=== PATIENT | male | born 1965 | race Caucasian/White ===

== ENCOUNTER 2024-03-23 09:36 | Observation (INO) ==
--- NOTE | 2024-03-23 09:48 | Emergency Department Note ---
History of Present Illness General Chief complaint: Seizure Stated complaint: SEIZURE Time Seen by Provider: 03/23/24 09:41 Source: patient, family (Friend who came in-Jonathan who witnessed this), EMS (I did talk to the special population paraprofessional prior to arrival on the medical command phone), RN notes reviewed and old records reviewed (Attempted but there were no old records available in the EMR) Mode of arrival: EMS Limitations: no limitations History of Present Illness This patient is 58-year-old male who was brought in by EMS after having seizures. They apparently were called out because he was shaky and then had a seizure he had a second seizure which lasted 10 minutes or so. He is postictal. He does have a history of having a stroke in the past and has baseline right- sided weakness. Upon arrival he seems diffusely shaky but is answering questions although seems slow and confused and postictal. No fall or trauma. They did check a blood sugar on route and it was in the 180s. He did have apparently 1 seizure in the past but is on no medications for seizures. I did talk to his friend Jonathan who witnesses he said they were eating breakfast before 9:00 and he said he was having a back spasm he lay down on the couch and his right leg started spasming they give him 2 extra strength Tylenol his right leg was shaky started looking to the side so he called 911. One-on-one and responded they did have a seizure and then he had 1 in the ambulance for about 10 minutes was given Ativan 2 mg IV. They did drink alcohol last night. No drug use no fall or trauma no illness recently he was fine this morning prior to this. His friend does not think he has a history of heavy alcohol use. Home Medications Medication Instructions Recorded Confirmed Type amlodipine 5 mg tablet 5 mg PO DAILY 03/23/24 03/23/24 History ezetimibe 10 mg tablet 10 mg PO HS 03/23/24 03/23/24 History levetiracetam 750 mg tablet 750 mg PO BID 03/23/24 03/23/24 History Allergies Allergy/AdvReac Type Severity Reaction Status Date / Time levofloxacin Allergy Unknown listed as Unverified 03/23/24 11:02 allergy on pharmacy record Past Med/Surg History Problem List (Updated 03/23/24 @ 12:12 by Arcadio Kennedy MD) Elevated lactic acid level (Acute) Altered level of consciousness (Acute) Seizure (Acute) Status epilepticus (Acute) History of seizures HLD (hyperlipidemia) HTN (hypertension) Right hemiplegia (Acute) History of stroke (Acute) Surgical History (Updated 03/23/24 @ 12:08 by Adri Rabago PA-C) Status post VNS (vagus nerve stimulator) placement Social History (Updated 03/23/24 @ 12:09 by Adri Rabago PA-C) Smoking Status: Never smoker Hx Alcohol Use: Yes Alcohol type: beer Alcohol Intake Frequency: 2-3 x/Week Feels Safe at Home: Yes Immunizations: Past medical history of stroke and seizure Social historyshe is in town from [place] no reported drug use or alcohol use Review of Systems A total of 10 systems reviewed and were otherwise negative Physical Exam Vital Signs Vital Signs - 24 hr 03/23/24 09:40 03/23/24 09:42 03/23/24 09:43 Temperature Temperature Source Pulse Rate 102 H 119 H Pulse Rate [Apical] Pulse Rate from SpO2 Sensor Pulse Rhythm Respiratory Rate 27 H 19 Respiratory Effort / Characteristics Respiratory Depth Respiratory Pattern Blood Pressure 163/114 H 163/114 H Blood Pressure [Left Arm] Blood Pressure Mean 148 130 Blood Pressure Mean [Left Arm] Pulse Oximetry 98 Oxygen Delivery Method Oxygen Flow Rate Sepsis Recent Fever Within 48 Hours No Sepsis New/Unexplained Change in Mental Status N/A Sepsis Action Taken by Nursing No Action Required 03/23/24 09:51 03/23/24 10:18 03/23/24 10:18 Temperature 36.8 C Temperature Source Axillary Pulse Rate 101 H 96 H Pulse Rate [Apical] 97 H Pulse Rate from SpO2 Sensor 149 H 96 H Pulse Rhythm Respiratory Rate 24 15 16 Respiratory Effort / Characteristics Non-Labored Respiratory Depth Normal Respiratory Pattern Regular Blood Pressure Blood Pressure [Left Arm] 134/80 Blood Pressure Mean Blood Pressure Mean [Left Arm] 98 Pulse Oximetry 94 94 92 Oxygen Delivery Method Room Air Oxygen Flow Rate Sepsis Recent Fever Within 48 Hours Sepsis New/Unexplained Change in Mental Status Sepsis Action Taken by Nursing 03/23/24 10:20 03/23/24 10:30 03/23/24 10:31 Temperature Temperature Source Pulse Rate 92 H Pulse Rate [Apical] Pulse Rate from SpO2 Sensor Pulse Rhythm Respiratory Rate Respiratory Effort / Characteristics Respiratory Depth Respiratory Pattern Blood Pressure 128/83 Blood Pressure [Left Arm] Blood Pressure Mean 96 Blood Pressure Mean [Left Arm] Pulse Oximetry 94 Oxygen Delivery Method Room Air Oxygen Flow Rate 0 Sepsis Recent Fever Within 48 Hours Sepsis New/Unexplained Change in Mental Status Sepsis Action Taken by Nursing 03/23/24 10:33 03/23/24 10:42 03/23/24 10:45 Temperature Temperature Source Pulse Rate 86 87 84 Pulse Rate [Apical] Pulse Rate from SpO2 Sensor 87 89 85 Pulse Rhythm Respiratory Rate 16 20 12 Respiratory Effort / Characteristics Respiratory Depth Respiratory Pattern Blood Pressure 154/100 H Blood Pressure [Left Arm] Blood Pressure Mean 118 Blood Pressure Mean [Left Arm] Pulse Oximetry 93 94 93 Oxygen Delivery Method Room Air Oxygen Flow Rate Sepsis Recent Fever Within 48 Hours Sepsis New/Unexplained Change in Mental Status Sepsis Action Taken by Nursing 03/23/24 10:54 03/23/24 10:55 03/23/24 10:55 Temperature Temperature Source Pulse Rate 73 77 Pulse Rate [Apical] Pulse Rate from SpO2 Sensor Pulse Rhythm Regular Respiratory Rate 18 18 Respiratory Effort / Characteristics Respiratory Depth Respiratory Pattern Blood Pressure Blood Pressure [Left Arm] 118/78 Blood Pressure Mean Blood Pressure Mean [Left Arm] 91 Pulse Oximetry 95 94 Oxygen Delivery Method Room Air Room Air Oxygen Flow Rate 0 Sepsis Recent Fever Within 48 Hours Sepsis New/Unexplained Change in Mental Status Sepsis Action Taken by Nursing 03/23/24 11:24 03/23/24 11:45 03/23/24 12:00 Temperature Temperature Source Pulse Rate 89 100 H Pulse Rate [Apical] Pulse Rate from SpO2 Sensor 101 H 100 H Pulse Rhythm Respiratory Rate 14 20 Respiratory Effort / Characteristics Respiratory Depth Respiratory Pattern Blood Pressure 150/99 H 150/99 H 136/89 Blood Pressure [Left Arm] Blood Pressure Mean 116 116 103 Blood Pressure Mean [Left Arm] Pulse Oximetry 98 97 Oxygen Delivery Method Room Air Room Air Oxygen Flow Rate Sepsis Recent Fever Within 48 Hours Sepsis New/Unexplained Change in Mental Status Sepsis Action Taken by Nursing General: Well developed well nourished older male who seems shaky but follows questions and answers some questions. He does have a baseline facial droop which is in no acute distress, breathing comfortably on room air. Normal speech HEENT: Normal cephalic atraumatic. Pupils are equal round and reactive to light. Extraocular movements are intact. Oropharynx is pink with moist mucous membranes. No swelling of the mouth lips or tongue. Baseline facial droop Neck: Supple with a midline trachea. No meningeal signs or stiffness, no JVD or bruits. No Stridor. Chest: Clear to auscultation bilaterally. No wheezes or rhonchi. No increased work of breathing. Heart: Regular rate and rhythm without murmurs or gallops. Abdomen: Soft nontender, nondistended without rebound guarding or rigidity. Extremities: No cyanosis clubbing or edema. No calf tenderness or assymetry Spine/Back. Non tender to palpation. No CVA tenderness Skin: Good turgor without rashes. Neurologic exam: Pupils are equal and reactive. He does seem diffusely shaky has baseline weakness of the right arm a facial droop. He is diffusely shaky at times but is also making purposeful movements and answering some questions. Course Administered Medications Discontinued Medications Sodium Chloride (Nss) 1,000 mls @ 999 mls/hr IV .Q1H1M ONE Stop: 03/23/24 11:16 Last Infusion: 03/23/24 11:12 Dose: Infused Documented By: Admin: 03/23/24 10:20 Dose: 999 mls/hr Documented By: LATONIA Ioversol (Optiray 320 150ml) 120 ml IV ONCE ONE Stop: 03/23/24 10:14 Last Admin: 03/23/24 10:13 Dose: 120 ml Documented By: FLORY Levetiracetam (Levetiracetam 500 Mg/5 Ml Vial) 3,340 mg IV NOW STA Stop: 03/23/24 09:44 Last Admin: 03/23/24 09:53 Dose: 3,340 mg Documented By: LATONIA Critical Care Time Critical Care Time: Yes Total Critical Care Time: 45 Due to the patient's altered mental status, seizure, need for IV medications, frequent neurologic evaluations and reassessment as well as discussion with paramedics, friend and consultants, I have personally spent greater than 30 minutes of critical care time in the direct management of this patient. This includes bedside care, interpretation of diagnostic studies, and testing, discussion with consultants, patient, and family members, and other required patient management activities. This 45 minutes is in excess of all separately billable procedures. Medical Decision Making Differential Diagnosis Seizure, sepsis, electrolyte or metabolic abnormality, toxicologic, metabolic, pseudoseizure alcohol use or withdrawal Medical Records Attestation: I reviewed the patient's medical records. Home Medications Current Medication List: was personally reviewed by nh Laboratory Data Attestation: I reviewed the patient's lab results. 03/23/24 09:51 03/23/24 09:51 Lab Results 03/23/24 03/23/24 03/23/24 Range/Units 09:51 09:52 10:26 WBC 6.32 (4.8-10.8) K/ul RBC 5.62 (4.70-6.10) M/uL Hgb 15.7 (14.0-18.0) g/dl POC Hgb 16.3 (14.0-18.0) g/dl Hct 48.1 (42.0-52.0) % POC Hct 48 (42-52) % MCV 85.6 (80.0-100.0) fL MCH 27.9 (25.0-34.0) pg MCHC 32.6 (32.0-36.0) g/dL RDW Std Deviation 40.1 (36.4-46.3) fL RDW Coeff of Ranjan 12.9 (11.5-14.5) % Plt Count 176 (130-400) K/uL MPV 12.0 (9.4-12.4) fL Immature Gran % (Auto) 0.2 % Neut % (Auto) 65.4 % Lymph % (Auto) 26.4 % Stanislaus % (Auto) 6.3 % Eos % (Auto) 0.9 % Baso % (Auto) 0.8 % Neut # (Auto) 4.13 (1.40-6.50) K/uL Lymph # (Auto) 1.67 (1.20-3.40) K/uL Stanislaus # (Auto) 0.40 (0.11-0.59) K/uL Eos # (Auto) 0.06 (0.00-0.50) K/uL Baso # (Auto) 0.05 (0.00-0.20) K/uL Immature Gran # (Auto) 0.01 (0.01-0.20) K/uL PT 10.7 (9.0-12.0) Seconds INR 1.0 (0.9-1.1) APTT 22 (21-31) Seconds PTT Ratio 0.8 POC Sodium 140 (135-144) mmol/L Sodium 139 (136-145) mmol/L POC Potassium 3.8 (3.3-5.0) mmol/L Potassium 3.8 (3.5-5.1) mmol/L POC Chloride 106 (101-112) mmol/L Chloride 106 (98-107) mmol/L Carbon Dioxide 19 L (21-32) mmol/L POC Total CO2 20 L (24-31) mmol/L Anion Gap 14 H (3-11) POC Anion Gap 19.0 (16-25) mmol/L POC BUN 16 (7-18) mg/dl BUN 18 (6-23) mg/dl Creatinine 1.17 (0.6-1.4) mg/dl POC Creatinine 1.2 (0.6-1.3) mg/dl Est Cr Clr Drug Dosing 73.7 ml/min Est GFR ( Amer) 78.1 ml/min Est GFR (Non-Af Amer) 67.4 ml/min BUN/Creatinine Ratio 15.4 (10-20) Glucose 158 H (70-99(Fasting)) mg/dl POC Glucose (other) 152 H (70-99) mg/dl Lactate 7.6 H* (0.4-2.0) mmol/L Calcium 9.7 (8.6-10.3) mg/dl POC Ioniz Calcium Esteban 1.17 (1.12-1.32) mmol/l Magnesium 1.9 (1.7-2.4) mg/dl Total Bilirubin 1.5 H (0.2-1.0) mg/dl Direct Bilirubin 0.2 (0-0.2) mg/dl AST 15 (13-39) U/L ALT 13 (7-52) U/L Alkaline Phosphatase 56 (34-104) U/L Troponin I High Sens 4.5 (0-20) pg/ml Total Protein 7.2 (6.0-8.3) gm/dl Albumin 4.2 (3.4-5.0) gm/dl Procalcitonin < 0.02 (0-0.5) ng/ml Urine Color Yellow Urine Appearance Clear (Clear) Urine pH 5.5 (4.5-7.5) Ur Specific Dorris 1.024 (1.000-1.030) Urine Protein 3+ H (Negative) Urine Glucose (UA) Negative (Negative) Urine Ketones Trace H (Negative) Urine Blood Negative (Negative) Urine Nitrite Negative (Negative) Urine Bilirubin Negative (Negative) Urine Urobilinogen Negative (Negative) Ur Leukocyte Esterase Negative (Negative) Urine WBC (Auto) 0-5 (0-5) /hpf Urine RBC (Auto) 0-2 (0-2) /hpf U Hyaline Cast (Auto) 6-10 H (0-2) /lpf U Epithel Cells (Auto) 0-2 (0-2) /hpf Urine Bacteria (Auto) None Seen (None Seen) Granular Casts Present A (None Prsent) /lpf Urine Mucus Present A (None Prsent) Urine Opiates Screen Neg (Neg) Ur Methadone, Qual Neg (Neg) Urine Fentanyl Screen Neg (Neg) Urine Barbiturates Neg (Neg) Ur Phencyclidine (PCP) Neg (Neg) U Amphetamin/Meth Scrn Neg (Neg) MDMA (Ecstasy) Screen Neg (Neg) U Benzodiazepines Scrn Neg (Neg) Ur Cocaine Metabolite Neg (Neg) U Marijuana (THC) Screen Neg (Neg) Ethyl Alcohol mg/dL (<10.0) mg/dl 03/23/24 03/23/24 Range/Units 11:10 11:23 WBC (4.8-10.8) K/ul RBC (4.70-6.10) M/uL Hgb (14.0-18.0) g/dl POC Hgb (14.0-18.0) g/dl Hct (42.0-52.0) % POC Hct (42-52) % MCV (80.0-100.0) fL MCH (25.0-34.0) pg MCHC (32.0-36.0) g/dL RDW Std Deviation (36.4-46.3) fL RDW Coeff of Ranjan (11.5-14.5) % Plt Count (130-400) K/uL MPV (9.4-12.4) fL Immature Gran % (Auto) % Neut % (Auto) % Lymph % (Auto) % Stanislaus % (Auto) % Eos % (Auto) % Baso % (Auto) % Neut # (Auto) (1.40-6.50) K/uL Lymph # (Auto) (1.20-3.40) K/uL Stan[place]aus # (Auto) (0.11-0.59) K/uL Eos # (Auto) (0.00-0.50) K/uL Baso # (Auto) (0.00-0.20) K/uL Immature Gran # (Auto) (0.01-0.20) K/uL PT (9.0-12.0) Seconds INR (0.9-1.1) APTT (21-31) Seconds PTT Ratio POC Sodium (135-144) mmol/L Sodium (136-145) mmol/L POC Potassium (3.3-5.0) mmol/L Potassium (3.5-5.1) mmol/L POC Chloride (101-112) mmol/L Chloride (98-107) mmol/L Carbon Dioxide (21-32) mmol/L POC Total CO2 (24-31) mmol/L Anion Gap (3-11) POC Anion Gap (16-25) mmol/L POC BUN (7-18) mg/dl BUN (6-23) mg/dl Creatinine (0.6-1.4) mg/dl POC Creatinine (0.6-1.3) mg/dl Est Cr Clr Drug Dosing ml/min Est GFR ( Amer) ml/min Est GFR (Non-Af Amer) ml/min BUN/Creatinine Ratio (10-20) Glucose (70-99(Fasting)) mg/dl POC Glucose (other) (70-99) mg/dl Lactate 2.1 H* (0.4-2.0) mmol/L Calcium (8.6-10.3) mg/dl POC Ioniz Calcium Esteban (1.12-1.32) mmol/l Magnesium (1.7-2.4) mg/dl Total Bilirubin (0.2-1.0) mg/dl Direct Bilirubin (0-0.2) mg/dl AST (13-39) U/L ALT (7-52) U/L Alkaline Phosphatase (34-104) U/L Troponin I High Sens (0-20) pg/ml Total Protein (6.0-8.3) gm/dl Albumin (3.4-5.0) gm/dl Procalcitonin (0-0.5) ng/ml Urine Color Urine Appearance (Clear) Urine pH (4.5-7.5) Ur Specific Dorris (1.000-1.030) Urine Protein (Negative) Urine Glucose (UA) (Negative) Urine Ketones (Negative) Urine Blood (Negative) Urine Nitrite (Negative) Urine Bilirubin (Negative) Urine Urobilinogen (Negative) Ur Leukocyte Esterase (Negative) Urine WBC (Auto) (0-5) /hpf Urine RBC (Auto) (0-2) /hpf U Hyaline Cast (Auto) (0-2) /lpf U Epithel Cells (Auto) (0-2) /hpf Urine Bacteria (Auto) (None Seen) Granular Casts (None Prsent) /lpf Urine Mucus (None Prsent) Urine Opiates Screen (Neg) Ur Methadone, Qual (Neg) Urine Fentanyl Screen (Neg) Urine Barbiturates (Neg) Ur Phencyclidine (PCP) (Neg) U Amphetamin/Meth Scrn (Neg) MDMA (Ecstasy) Screen (Neg) U Benzodiazepines Scrn (Neg) Ur Cocaine Metabolite (Neg) U Marijuana (THC) Screen (Neg) Ethyl Alcohol mg/dL < 10.0 (<10.0) mg/dl Imaging Data Attestation: I personally reviewed and interpreted this imaging study as follows: My Impression: Head CTthere is a large area from a previous stroke on the left hemisphere. There is no acute bleed or mass effect seen Chest x-raythere is no acute infiltrate, failure, pneumothorax there is a electronic device in the left chest Radiologist's Impression: Chest X-Ray 03/23/24 09:41 SINGLE VIEW CHEST CLINICAL HISTORY: Sepsis. FINDINGS: An AP, portable, upright chest radiograph is obtained. No prior studies are available for comparison at the time of dictation. An electronic device partially obscures the left lower chest. The lead extends into the left neck. The heart appears mildly enlarged. There is prominence of the pulmonary vasculature. Nonspecific interstitial thickening is likely chronic. No airspace consolidation or pleural effusion is identified. No pneumothorax is seen. The skeletal structures are osteopenic. The bony thorax is grossly intact. IMPRESSION: 1. Cardiomegaly with prominence of the pulmonary vasculature. Correlate clinically for evidence of fluid overload/congestive change. 2. No airspace consolidation or large pleural effusion is identified. ACT 112: Negative or not required by law. Electronically signed by: Josué Chino M.D. 03/23/2024 11:[address] 03/23/24 09:[address] OF THE BRAIN; CT ANGIOGRAM OF THE BRAIN; CT ANGIOGRAM OF THE NECK CLINICAL HISTORY: Seizure. COMPARISON STUDY: No priors. TECHNIQUE: Unenhanced axial CT scan of the brain is performed. Subsequently, following the IV administration of 120 of Optiray 320, CT angiogram of the head and neck was performed from the aortic arch to the vertex. Images are reviewed in the axial, sagittal, and coronal planes. 3-D MIPS images are created and assessed. IV contrast was administered without complication. All measurements were calculated based on NASCET criteria. A dose lowering technique was utilized adhering to the principles of ALARA. CT DOSE: 1280.24 mGy.cm FINDINGS: Brain parenchyma: Left MCA territory encephalomalacia is consistent with a remote infarct. There is ex vacuo dilatation of the left lateral ventricle and Wallerian degeneration within the left aspect of the anuj. There is no hemorrhage, mass effect, or evidence of acute territorial ischemia by CT criteria. There is no evidence of enhancing mass lesion on the angiogram phase images. The ventricles, sulci, and cisterns are normal in configuration. Carvajal- white matter differentiation is preserved. No extra-axial fluid collection is seen. Thoracic aorta: Visualized portions of the thoracic aorta are normal in caliber. The aortic arch demonstrates standard 3-vessel anatomy. Right carotid arterial system: The right common carotid artery is widely patent, as are the right internal and external carotid arteries. Left carotid arterial system: The left common carotid artery is widely patent, as is the left external carotid artery. The proximal left internal carotid artery is widely patent. There are stents within the mid to distal left internal carotid artery. The stents appear patent. Apparent diminished flow within the stent seen on image #355 is secondary to streak artifact. Vertebral arteries: The vertebral arteries are widely patent bilaterally noting left-sided dominance. Subclavian arteries: Widely patent bilaterally. Atherosclerotic plaque and irregularity seen on the left. Intracranial vasculature: The internal carotid arteries are patent at the skull base, as are the anterior and middle cerebral arteries bilaterally. The right A1 segment is atretic. The vertebrobasilar system and posterior cerebral arteries are widely patent. The left vertebral artery is dominant. There is origin of the right posterior cerebral artery. There is no aneurysm, high-grade stenosis, or focal vessel cut off seen throughout the intracranial circulation. Jugular veins: Patent bilaterally. Dural sinuses: Patent. Lung apices: Partially visualized upper lobe lung parenchyma appears clear. Soft tissues: The visualized pharyngeal soft tissues are normal in appearance noting angiographic phase technique. The oropharyngeal airway appears widely patent. The salivary and thyroid glands are normal in appearance. No cervical lymphadenopathy is seen. Postoperative changes seen in the left lower neck with a lead in place. Skeletal structures: The calvarium appears intact. The cervical spine is maintained noting multilevel spondylosis. Orbits: The bony orbits are intact. Orbital contents are normal as visualized. Sinuses and mastoids: There is trace mucosal thickening within the maxillary antra. The remaining 1paranasal sinuses are clear. The mastoid air cells are well pneumatized. IMPRESSION: 1. There is no hemorrhage, mass effect, or evidence of acute territorial ischemia by CT criteria. 2. Large remote left MCA territory infarct. 3. Unremarkable CT angiogram of the brain. 4. Stents are present within the mid to distal left internal carotid artery. These appear patent. 5. Otherwise unremarkable CT angiogram of the neck. ACT 112: Negative or not required by law. Electronically signed by: Josué Chino M.D. 03/23/2024 11:02 AM Head CTA 03/23/24 09:[address] OF THE BRAIN; CT ANGIOGRAM OF THE BRAIN; CT ANGIOGRAM OF THE NECK CLINICAL HISTORY: Seizure. COMPARISON STUDY: No priors. TECHNIQUE: Unenhanced axial CT scan of the brain is performed. Subsequently, following the IV administration of 120 of Optiray 320, CT angiogram of the head and neck was performed from the aortic arch to the vertex. Images are reviewed in the axial, sagittal, and coronal planes. 3-D MIPS images are created and assessed. IV contrast was administered without complication. All measurements were calculated based on NASCET criteria. A dose lowering technique was utilized adhering to the principles of ALARA. CT DOSE: 1280.24 mGy.cm FINDINGS: Brain parenchyma: Left MCA territory encephalomalacia is consistent with a remote infarct. There is ex vacuo dilatation of the left lateral ventricle and Wallerian degeneration within the left aspect of the anuj. There is no hemorrhage, mass effect, or evidence of acute territorial ischemia by CT criteria. There is no evidence of enhancing mass lesion on the angiogram phase images. The ventricles, sulci, and cisterns are normal in configuration. Carvajal- white matter differentiation is preserved. No extra-axial fluid collection is seen. Thoracic aorta: Visualized portions of the thoracic aorta are normal in caliber. The aortic arch demonstrates standard 3-vessel anatomy. Right carotid arterial system: The right common carotid artery is widely patent, as are the right internal and external carotid arteries. Left carotid arterial system: The left common carotid artery is widely patent, as is the left external carotid artery. The proximal left internal carotid artery is widely patent. There are stents within the mid to distal left internal carotid artery. The stents appear patent. Apparent diminished flow within the stent seen on image #355 is secondary to streak artifact. Vertebral arteries: The vertebral arteries are widely patent bilaterally noting left-sided dominance. Subclavian arteries: Widely patent bilaterally. Atherosclerotic plaque and irregularity seen on the left. Intracranial vasculature: The internal carotid arteries are patent at the skull base, as are the anterior and middle cerebral arteries bilaterally. The right A1 segment is atretic. The vertebrobasilar system and posterior cerebral arteries are widely patent. The left vertebral artery is dominant. There is origin of the right posterior cerebral artery. There is no aneurysm, high-grade stenosis, or focal vessel cut off seen throughout the intracranial circulation. Jugular veins: Patent bilaterally. Dural sinuses: Patent. Lung apices: Partially visualized upper lobe lung parenchyma appears clear. Soft tissues: The visualized pharyngeal soft tissues are normal in appearance noting angiographic phase technique. The oropharyngeal airway appears widely patent. The salivary and thyroid glands are normal in appearance. No cervical lymphadenopathy is seen. Postoperative changes seen in the left lower neck with a lead in place. Skeletal structures: The calvarium appears intact. The cervical spine is maintained noting multilevel spondylosis. Orbits: The bony orbits are intact. Orbital contents are normal as visualized. Sinuses and mastoids: There is trace mucosal thickening within the maxillary antra. The remaining 1paranasal sinuses are clear. The mastoid air cells are well pneumatized. IMPRESSION: 1. There is no hemorrhage, mass effect, or evidence of acute territorial ischemia by CT criteria. 2. Large remote left MCA territory infarct. 3. Unremarkable CT angiogram of the brain. 4. Stents are present within the mid to distal left internal carotid artery. These appear patent. 5. Otherwise unremarkable CT angiogram of the neck. ACT 112: Negative or not required by law. Electronically signed by: Josué Chino M.D. 03/23/2024 11:02 AM Neck CTA 03/23/24 09:[address] OF THE BRAIN; CT ANGIOGRAM OF THE BRAIN; CT ANGIOGRAM OF THE NECK CLINICAL HISTORY: Seizure. COMPARISON STUDY: No priors. TECHNIQUE: Unenhanced axial CT scan of the brain is performed. Subsequently, following the IV administration of 120 of Optiray 320, CT angiogram of the head and neck was performed from the aortic arch to the vertex. Images are reviewed in the axial, sagittal, and coronal planes. 3-D MIPS images are created and assessed. IV contrast was administered without complication. All measurements were calculated based on NASCET criteria. A dose lowering technique was utilized adhering to the principles of ALARA. CT DOSE: 1280.24 mGy.cm FINDINGS: Brain parenchyma: Left MCA territory encephalomalacia is consistent with a remote infarct. There is ex vacuo dilatation of the left lateral ventricle and Wallerian degeneration within the left aspect of the anuj. There is no hemorrhage, mass effect, or evidence of acute territorial ischemia by CT criteria. There is no evidence of enhancing mass lesion on the angiogram phase images. The ventricles, sulci, and cisterns are normal in configuration. Carvajal- white matter differentiation is preserved. No extra-axial fluid collection is seen. Thoracic aorta: Visualized portions of the thoracic aorta are normal in caliber. The aortic arch demonstrates standard 3-vessel anatomy. Right carotid arterial system: The right common carotid artery is widely patent, as are the right internal and external carotid arteries. Left carotid arterial system: The left common carotid artery is widely patent, as is the left external carotid artery. The proximal left internal carotid artery is widely patent. There are stents within the mid to distal left internal carotid artery. The stents appear patent. Apparent diminished flow within the stent seen on image #355 is secondary to streak artifact. Vertebral arteries: The vertebral arteries are widely patent bilaterally noting left-sided dominance. Subclavian arteries: Widely patent bilaterally. Atherosclerotic plaque and irregularity seen on the left. Intracranial vasculature: The internal carotid arteries are patent at the skull base, as are the anterior and middle cerebral arteries bilaterally. The right A1 segment is atretic. The vertebrobasilar system and posterior cerebral arteries are widely patent. The left vertebral artery is dominant. There is origin of the right posterior cerebral artery. There is no aneurysm, high-grade stenosis, or focal vessel cut off seen throughout the intracranial circulation. Jugular veins: Patent bilaterally. Dural sinuses: Patent. Lung apices: Partially visualized upper lobe lung parenchyma appears clear. Soft tissues: The visualized pharyngeal soft tissues are normal in appearance noting angiographic phase technique. The oropharyngeal airway appears widely patent. The salivary and thyroid glands are normal in appearance. No cervical lymphadenopathy is seen. Postoperative changes seen in the left lower neck with a lead in place. Skeletal structures: The calvarium appears intact. The cervical spine is maintained noting multilevel spondylosis. Orbits: The bony orbits are intact. Orbital contents are normal as visualized. Sinuses and mastoids: There is trace mucosal thickening within the maxillary antra. The remaining 1paranasal sinuses are clear. The mastoid air cells are well pneumatized. IMPRESSION: 1. There is no hemorrhage, mass effect, or evidence of acute territorial ischemia by CT criteria. 2. Large remote left MCA territory infarct. 3. Unremarkable CT angiogram of the brain. 4. Stents are present within the mid to distal left internal carotid artery. These appear patent. 5. Otherwise unremarkable CT angiogram of the neck. ACT 112: Negative or not required by law. Electronically signed by: Josué Chino M.D. 03/23/2024 11:02 AM ECG Data Attestation: I personally reviewed and interpreted this ECG as follows: Indication: + weakness Rate (beats per minute): 96 Rhythm: + normal sinus ECG Intervals/blocks: + Normal QRS, + Normal QT and + Normal GA ECG Cumming: + Normal ECG ST segments: + Normal ST segments ECG Findings: no PACs or no PVCs Comparison ECG Date: no prior available MDM Narrative This patient comes in as described above. He was placed on a youth nutritional monitor room B1 I saw him emergently upon arrival given his condition. I did talk to the paramedics prior to arrival. Has received Ativan 2 mg IV. He tells me is on no medications for seizures. I did load him with Keppra 40 mg/kg. He seems shaky but he will answer questions and does purposeful movements such as blinking. He was evaluated several times he does have some speech issues at baseline. He did stop shaking and he is blinking and looking around so I do not think he is seizing at present. I-STAT shows no significant abnormalities and he was sent over to CAT scan. While he was in the ED his shaking stopped and he was further observed. He seems sleepy although he had received the Ativan. He would respond to painful stimuli and make purposeful movements so was not seizing. His lactic acid came back elevated although he has no fever white count likely this is from the seizures rather than sepsis. Talking to his friend he was fine until this all started. He was hydrated with 1 L IV normal saline. The rest of his inflammatory markers are not elevated I do not think he likely has an infection again he was fine prior to this happening. He was postictal and also received Ativan prior to arrival. He has no significant electrolyte or metabolic abnormalities. He has nothing just acute coronary syndrome or significant arrhythmia. CAT scan of his head shows nothing acute. The patient did wake up and was doing much better, answering questions appropriately. His neuroimaging was unremarkable. His lactic acid cleared significantly when repeated and is now down in the 2 range. Again I think it was from a seizure. He has been hydrated. Given the fact that the patient had a prolonged seizure and also a another 1 prior to that, he had been treated with Keppra for status epilepticus and will be admitted/observed in the hospital. I did consult and discussed the case with Dr. Oreilly, from the [facility], she promptly saw the patient in the ER and he will be admitted/observed Continuous cardiac monitoring: Orders placed in EMR for continuous youth nutritional monitor, upon my evaluation patient to be in sinus tachycardia with a rate 115 Impression & Plan Status epilepticus, Seizure, History of stroke, Right hemiplegia, Altered level of consciousness, Elevated lactic acid level Discharge Plan Visit Data Chief Complaint: Seizure Stated Complaint: SEIZURE ED Provider: Arcadio Kennedy Discharge Problem: Status epilepticus, Seizure, History of stroke, Right hemiplegia, Altered level of consciousness, Elevated lactic acid level Patient Disposition: Admitted As Inpatient Discharge Instructions Interventions: ED Discharge Assessment Last Done: 03/23/24 13:55
[2024-03-23] MEDS: levETIRAcetam 500 MG/5 ML VIAL IV STA (09:53)
[2024-03-23 10:07] LABS: iSTAT Creatinine 1.2 mg/dl (0.6-1.3); iSTAT Hemoglobin 16.3 g/dl (14.0-18.0); iSTAT Ionized Calcium 1.17 mmol/l (1.12-1.32); iSTAT Potassium 3.8 mmol/L (3.3-5.0)
[2024-03-23 10:11] LABS: Basophils # (auto) 0.05 K/uL (0.00-0.20); Basophils % (auto) 0.8 %; Eosinophils # (auto) 0.06 K/uL (0.00-0.50); Eosinophils % (auto) 0.9 %; Hematocrit (blood only) 48.1 % (42.0-52.0); Hemoglobin 15.7 g/dl (14.0-18.0); Immature Granulocytes # (auto) 0.01 K/uL (0.01-0.20); Immature Granulocytes % (auto) 0.2 %; Lymphocytes # (auto) 1.67 K/uL (1.20-3.40); Lymphocytes % (auto) 26.4 %; Mean Corpuscular Hemoglobin 27.9 pg (25.0-34.0); Mean Corpuscular Hgb Conc 32.6 g/dL (32.0-36.0); Mean Corpuscular Volume 85.6 fL (80.0-100.0); Monocytes % (auto) 6.3 %; Neutrophils # (auto) 4.13 K/uL (1.40-6.50); Neutrophils % (auto) 65.4 %; Platelet Count 176 K/uL (130-400); RDW Coefficient of Variation 12.9 % (11.5-14.5); RDW Standard Deviation 40.1 fL (36.4-46.3); Red Blood Count 5.62 M/uL (4.70-6.10); White Blood Count 6.32 K/ul (4.8-10.8)
[2024-03-23] MEDS: OPTIRAY 320 150ml IV ONE (10:13)
[2024-03-23] MEDS: SODIUM CHLORIDE 0.9% 1,000 ML IV ONE (10:20)
[2024-03-23 10:34] LABS: Albumin Level 4.2 gm/dl (3.4-5.0); BUN Creatinine Ratio 15.4 (10-20); Bilirubin Direct 0.2 mg/dl (0-0.2); Bilirubin,Total 1.5 mg/dl (0.2-1.0); Calcium 9.7 mg/dl (8.6-10.3); Creatinine Clr Calc Pharmacy 73.7 ml/min; Est GFR (African American) 78.1 ml/min; Est GFR (Non-African American) 67.4 ml/min; Magnesium 1.9 mg/dl (1.7-2.4); Potassium 3.8 mmol/L (3.5-5.1); Total Protein 7.2 gm/dl (6.0-8.3)
[2024-03-23 10:37] LABS: Partial Thromboplastin Ratio 0.8; Partial Thromboplastin Time 22 Seconds (21-31); Prothrombin Time 10.7 Seconds (9.0-12.0)
[2024-03-23 10:40] LABS: Troponin I High Sensitivity 4.5 pg/ml (0-20)
[2024-03-23 10:49] LABS: Appearance Urine Clear (Clear); Bacteria Urine Automated None Seen (None Seen); Bilirubin Urine Negative (Negative); Blood Urine Negative (Negative); Color Urine Yellow; Epithelial Cell Urine Auto 0-2 /hpf (0-2); Glucose Urine UA Negative (Negative); Ketones Urine Trace (Negative); Leukocyte Esterase Urine Negative (Negative); Nitrite Urine Negative (Negative); Protein Urine 3+ (Negative); Specific Gravity Urine 1.024 (1.000-1.030); Urobilinogen Urine Negative (Negative); WBC Urine Automated 0-5 /hpf (0-5); pH Urine 5.5 (4.5-7.5)
[2024-03-23 10:57] LABS: Mucus Urine Present (None Prsent)
[2024-03-23 10:58] LABS: Granular Casts Urine Present /lpf (None Prsent); RBC Urine Automated 0-2 /hpf (0-2)
[2024-03-23 11:04] LABS: Amphetamines+Metham, Urine Neg (Neg); Barbiturates, Urine Neg (Neg); Benzodiazepine, Urine Neg (Neg); Cocaine, Urine Neg (Neg); Fentanyl, Urine Neg (Neg); MDMA (Ecstacy), Urine Neg (Neg); Marijuana, Urine Neg (Neg); Methadone, Urine Neg (Neg); Opiate, Urine Neg (Neg); Phencyclidine, Urine Neg (Neg)
--- NOTE | 2024-03-23 11:04 | CT Scan Report ---
UNENHANCED CT OF THE BRAIN; CT ANGIOGRAM OF THE BRAIN; CT ANGIOGRAM OF THE NECK CLINICAL HISTORY: Seizure. COMPARISON STUDY: No priors. TECHNIQUE: Unenhanced axial CT scan of the brain is performed. Subsequently, following the IV adminis tration of 120 of [address] 320, CT angiogram of the head and neck was performed from the aortic arch t o the vertex. Images are reviewed in the axial, sagittal, and coronal planes. 3-D MIPS images are cre ated and assessed. IV contrast was administered without complication. All measurements were calculate d based on NASCET criteria. A dose lowering technique was utilized adhering to the principles of ALA RA. CT DOSE: 1280.24 mGy.cm FINDINGS: Brain parenchyma: Left MCA territory encephalomalacia is consistent with a remote infarct. There is e x vacuo dilatation of the left lateral ventricle and Wallerian degeneration within the left aspect of the anuj. There is no hemorrhage, mass effect, or evidence of acute territorial ischemia by CT crite taylor. There is no evidence of enhancing mass lesion on the angiogram phase images. The ventricles, sul ci, and cisterns are normal in configuration. Carvajal-white matter differentiation is preserved. No extr a-axial fluid collection is seen. Thoracic aorta: Visualized portions of the thoracic aorta are normal in caliber. The aortic arch demo nstrates standard 3-vessel anatomy. Right carotid arterial system: The right common carotid artery is widely patent, as are the right int ernal and external carotid arteries. Left carotid arterial system: The left common carotid artery is widely patent, as is the left externa l carotid artery. The proximal left internal carotid artery is widely patent. There are stents within the mid to distal left internal carotid artery. The stents appear patent. Apparent diminished flow w ithin the stent seen on image #355 is secondary to streak artifact. Vertebral arteries: The vertebral arteries are widely patent bilaterally noting left-sided dominance. Subclavian arteries: Widely patent bilaterally. Atherosclerotic plaque and irregularity seen on the l eft. Intracranial vasculature: The internal carotid arteries are patent at the skull base, as are the ante rior and middle cerebral arteries bilaterally. The right A1 segment is atretic. The vertebrobasilar s ystem and posterior cerebral arteries are widely patent. The left vertebral artery is dominant. There is origin of the right posterior cerebral artery. There is no aneurysm, high-grade stenosis, o r focal vessel cut off seen throughout the intracranial circulation. Jugular veins: Patent bilaterally. Dural sinuses: Patent. Lung apices: Partially visualized upper lobe lung parenchyma appears clear. Soft tissues: The visualized pharyngeal soft tissues are normal in appearance noting angiographic pha se technique. The oropharyngeal airway appears widely patent. The salivary and thyroid glands are nor mal in appearance. No cervical lymphadenopathy is seen. Postoperative changes seen in the left lower neck with a lead in place. Skeletal structures: The calvarium appears intact. The cervical spine is maintained noting multilevel spondylosis. Orbits: The bony orbits are intact. Orbital contents are normal as visualized. Sinuses and mastoids: There is trace mucosal thickening within the maxillary antra. The remaining 1pa ranasal sinuses are clear. The mastoid air cells are well pneumatized. IMPRESSION: 1. There is no hemorrhage, mass effect, or evidence of acute territorial ischemia by CT criteria. 2. Large remote left MCA territory infarct. 3. Unremarkable CT angiogram of the brain. 4. Stents are present within the mid to distal left internal carotid artery. These appear patent. 5. Otherwise unremarkable CT angiogram of the neck. ACT 112: Negative or not required by law. Electronically signed by: Josué Chino M.D. 03/23/2024 11:02 AM
--- NOTE | 2024-03-23 11:08 | XRay Report ---
SINGLE VIEW CHEST CLINICAL HISTORY: Sepsis. FINDINGS: An AP, portable, upright chest radiograph is obtained. No prior studies are available for c omparison at the time of dictation. An electronic device partially obscures the left lower chest. The lead extends into the left neck. The heart appears mildly enlarged. There is prominence of the pulmo nary vasculature. Nonspecific interstitial thickening is likely chronic. No airspace consolidation or pleural effusion is identified. No pneumothorax is seen. The skeletal structures are osteopenic. The bony thorax is grossly intact. IMPRESSION: 1. Cardiomegaly with prominence of the pulmonary vasculature. Correlate clinically for evidence of fl uid overload/congestive change. 2. No airspace consolidation or large pleural effusion is identified. ACT 112: Negative or not required by law. Electronically signed by: Josué Chino M.D. 03/23/2024 11:06 AM
--- NOTE | 2024-03-23 12:13 | History & Physical Report ---
Date of Service March 23, 2024 Assessment & Plan (1) Seizure: (2) History of stroke: (3) Right hemiplegia: Plan Mr. 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 Patient was confused on examination, able to answer limited questions and intermittently follow commands. History of multiple seizures s/p stroke given missed medications per daughter. #Seizure iso medication noncompliance #Acute encephalopathy s/p seizure #Large left MCA stroke c/b hemiparesis, dysarthria, seizures -Stroke 12/13/2022, s/p 2 stents in left ICA Previously on gabapentin, but now on keppra 750 BID missed medications for 1-2 days -loaded with keppra in ED -Resume home keppra Neuro consult Seizure precautions PT/OT continue zetia/asa daily #Elevated #HTN continue home amlodipine #HLD statin intolerant, continue home zetia #BPH no longer on terazosin monitor UOP DVT lovenox, scds PCU /tele Admission and Anticipated Discharge Date Admission Date: Time spent evaluating patient, direct bedside care, chart review, placing orders, interpretation of diagnostic studies, discussion with consultants, patient, and family members, as well as other required patient management activities is 75 minutes. History of Present Illness Chief Complaint: Seizure Primary Care Provider: NO PCP Mr. Jerod Wiggins is a 58 year old woman with past medical history remarkable for left MCA stroke 12/13/2022 c/b right hemiparesis, post-stroke seizure, dysarthria, hypertension, HLD, BPH who presented to [facility] ED due to seizures. Patient was confused on examination, able to answer limited questions and intermittently follow commands. Patient is in town for an old Fraternity Brother meet up and left his keppra at home and has not taken keppra for up to 2 days. Since his stroke in 2022, he has experienced 4 seizures, mostly 2/2 missed medications. Majority of history was gathered from daughter, Lexi ([phone]). She reports patient is forgetful since his stroke and the prior seizures are due to lapses in forgetting his medication. Daughter reports patient doesn't smoke. She states he drinks 1-3 times a week, 1-2 beers in a sitting. Patient does not use an assistive device but does drag his right leg. He has a vagal stimulator placed s/p stroke. Seizure was witnessed, reported as generalized "shaking" lasting roughly 10- 15minutes. Patient reportedly had additional seizure in EMS for which he received ativan 2mg IV. Patient states he isn't in any pain. He endorses forgetting his home medications. He denies headache, chest pain or other acute issues. patient is currently from who is listed in chart. Friend, Jonathan, was at bedside. In the ED, vitals were notable for BP of 150s, HR of 80s-100s, and O2 sat of high 90s Imaging revealed left MCA encephalomalacia with stents in mid/distal left ICA EKG NSR QTc 444 ED interventions: hansel medina Consultants: neuro Patient to be admitted to pcu/tele. for further evaluation and management of seizure. Allergies Allergy/AdvReac Type Severity Reaction Status Date / Time levofloxacin Allergy Unknown listed as Unverified 03/23/24 11:02 allergy on pharmacy record Home Medications Medication Instructions Recorded Confirmed Type amlodipine 5 mg tablet 5 mg PO DAILY 03/23/24 03/23/24 History ezetimibe 10 mg tablet 10 mg PO HS 03/23/24 03/23/24 History levetiracetam 750 mg tablet 750 mg PO BID 03/23/24 03/23/24 History Past Med/Surg History Problem List (Updated 03/23/24 @ 12:12 by Arcadio Kennedy MD) Elevated lactic acid level (Acute) Altered level of consciousness (Acute) Seizure (Acute) Status epilepticus (Acute) History of seizures HLD (hyperlipidemia) HTN (hypertension) Right hemiplegia (Acute) History of stroke (Acute) Surgical History (Updated 03/23/24 @ 12:08 by Adri Rabago PA-C) Status post VNS (vagus nerve stimulator) placement Social History (Updated 03/23/24 @ 12:09 by Adri Rabago PA-C) Smoking Status: Never smoker Hx Alcohol Use: Yes Alcohol type: beer Alcohol Intake Frequency: 2-3 x/Week Feels Safe at Home: Yes Review of Systems Review of Systems: Unobtainable due to reduced consciousness Physical Exam Physical Exam: GENERAL APPEARANCE: AxOx1 confused appearing, no acute distress. HEENT: NC, AT. MMM. EOMI, clear conjunctiva, oropharynx clear.right facial droop NECK: Supple without lymphadenopathy. No stiffness or restricted ROM. HEART: Normal rate and regular rhythm, normal S1/S1, no m/r/g; left sided vagal stim with healed incision noted LUNGS: CTAB, moving air well. No crackles or wheezes are heard. ABDOMEN: Soft, nontender, nondistended with good bowel sounds heard. BACK: No CVAT, no obvious deformity. EXTREMITIES: Without cyanosis, clubbing or edema. right arm in splint with some slight contracture of digits NEUROLOGICAL: right hemiparesis, unable to lift right arm or right leg, right facial droop, dysarthria, no shaking noted, makes appropriate eye contact, able to follow minimal commands, still seemingly confused s/p seizure Skin: Warm and dry without any rash. Results & Data Results & Data Vital Signs (Past 12 Hours) Vital Signs Temp Pulse Pulse Resp BP BP Pulse Ox 03/23/24 11:45 100 H 20 150/99 H 97 03/23/24 11:24 89 14 150/99 H 98 03/23/24 10:55 77 18 94 03/23/24 10:55 118/78 03/23/24 10:54 73 18 95 03/23/24 10:45 84 12 154/100 H 93 03/23/24 10:42 87 20 94 03/23/24 10:33 86 16 93 03/23/24 10:31 94 03/23/24 10:30 92 H 03/23/24 10:20 128/83 03/23/24 10:18 96 H 16 92 03/23/24 10:18 36.8 C 97 H 15 134/80 94 03/23/24 09:51 101 H 24 94 03/23/24 09:43 119 H 19 163/114 H 98 03/23/24 09:42 102 H 27 H 03/23/24 09:40 163/114 H O2 Del Method O2 Flow Rate 03/23/24 11:45 Room Air 03/23/24 11:24 Room Air 03/23/24 10:55 Room Air 03/23/24 10:55 03/23/24 10:54 Room Air 0 03/23/24 10:45 Room Air 03/23/24 10:42 03/23/24 10:33 03/23/24 10:31 Room Air 0 03/23/24 10:30 03/23/24 10:20 03/23/24 10:18 03/23/24 10:18 Room Air 03/23/24 09:51 03/23/24 09:43 03/23/24 09:42 03/23/24 09:40 Laboratory Results Short CBC 03/23/24 Range/Units 09:51 WBC 6.32 (4.8-10.8) K/ul Hgb 15.7 (14.0-18.0) g/dl Hct 48.1 (42.0-52.0) % Plt Count 176 (130-400) K/uL BMP 03/23/24 09:51 Sodium 139 Potassium 3.8 Chloride 106 Carbon Dioxide 19 L BUN 18 Creatinine 1.17 Glucose 158 H Calcium 9.7 Liver Function 03/23/24 Range/Units 09:51 Total Bilirubin 1.5 H (0.2-1.0) mg/dl Direct Bilirubin 0.2 (0-0.2) mg/dl AST 15 (13-39) U/L ALT 13 (7-52) U/L Alkaline Phosphatase 56 (34-104) U/L Albumin 4.2 (3.4-5.0) gm/dl Urine 03/23/24 Range/Units 10:26 Urine Color Yellow Urine Appearance Clear (Clear) Urine pH 5.5 (4.5-7.5) Ur Specific [place] 1.024 (1.000-1.030) Urine Protein 3+ H (Negative) Urine Glucose (UA) Negative (Negative) Diagnostic Findings Chest X-Ray 03/23/24 09:41 SINGLE VIEW CHEST CLINICAL HISTORY: Sepsis. FINDINGS: An AP, portable, upright chest radiograph is obtained. No prior studies are available for comparison at the time of dictation. An electronic device partially obscures the left lower chest. The lead extends into the left neck. The heart appears mildly enlarged. There is prominence of the pulmonary vasculature. Nonspecific interstitial thickening is likely chronic. No airspace consolidation or pleural effusion is identified. No pneumothorax is seen. The skeletal structures are osteopenic. The bony thorax is grossly intact. IMPRESSION: 1. Cardiomegaly with prominence of the pulmonary vasculature. Correlate clinically for evidence of fluid overload/congestive change. 2. No airspace consolidation or large pleural effusion is identified. ACT 112: Negative or not required by law. Electronically signed by: Josué Chino M.D. 03/23/2024 11:[address] 03/23/24 09:[address] OF THE BRAIN; CT ANGIOGRAM OF THE BRAIN; CT ANGIOGRAM OF THE NECK CLINICAL HISTORY: Seizure. COMPARISON STUDY: No priors. TECHNIQUE: Unenhanced axial CT scan of the brain is performed. Subsequently, following the IV administration of 120 of Optiray 320, CT angiogram of the head and neck was performed from the aortic arch to the vertex. Images are reviewed in the axial, sagittal, and coronal planes. 3-D MIPS images are created and assessed. IV contrast was administered without complication. All measurements were calculated based on NASCET criteria. A dose lowering technique was utilized adhering to the principles of ALARA. CT DOSE: 1280.24 mGy.cm FINDINGS: Brain parenchyma: Left MCA territory encephalomalacia is consistent with a remote infarct. There is ex vacuo dilatation of the left lateral ventricle and Wallerian degeneration within the left aspect of the anuj. There is no hemorrhage, mass effect, or evidence of acute territorial ischemia by CT criteria. There is no evidence of enhancing mass lesion on the angiogram phase images. The ventricles, sulci, and cisterns are normal in configuration. Carvajal- white matter differentiation is preserved. No extra-axial fluid collection is seen. Thoracic aorta: Visualized portions of the thoracic aorta are normal in caliber. The aortic arch demonstrates standard 3-vessel anatomy. Right carotid arterial system: The right common carotid artery is widely patent, as are the right internal and external carotid arteries. Left carotid arterial system: The left common carotid artery is widely patent, as is the left external carotid artery. The proximal left internal carotid artery is widely patent. There are stents within the mid to distal left internal carotid artery. The stents appear patent. Apparent diminished flow within the stent seen on image #355 is secondary to streak artifact. Vertebral arteries: The vertebral arteries are widely patent bilaterally noting left-sided dominance. Subclavian arteries: Widely patent bilaterally. Atherosclerotic plaque and irregularity seen on the left. Intracranial vasculature: The internal carotid arteries are patent at the skull base, as are the anterior and middle cerebral arteries bilaterally. The right A1 segment is atretic. The vertebrobasilar system and posterior cerebral arteries are widely patent. The left vertebral artery is dominant. There is origin of the right posterior cerebral artery. There is no aneurysm, high-grade stenosis, or focal vessel cut off seen throughout the intracranial circulation. Jugular veins: Patent bilaterally. Dural sinuses: Patent. Lung apices: Partially visualized upper lobe lung parenchyma appears clear. Soft tissues: The visualized pharyngeal soft tissues are normal in appearance noting angiographic phase technique. The oropharyngeal airway appears widely patent. The salivary and thyroid glands are normal in appearance. No cervical lymphadenopathy is seen. Postoperative changes seen in the left lower neck with a lead in place. Skeletal structures: The calvarium appears intact. The cervical spine is maintained noting multilevel spondylosis. Orbits: The bony orbits are intact. Orbital contents are normal as visualized. Sinuses and mastoids: There is trace mucosal thickening within the maxillary antra. The remaining 1paranasal sinuses are clear. The mastoid air cells are well pneumatized. IMPRESSION: 1. There is no hemorrhage, mass effect, or evidence of acute territorial ischemia by CT criteria. 2. Large remote left MCA territory infarct. 3. Unremarkable CT angiogram of the brain. 4. Stents are present within the mid to distal left internal carotid artery. These appear patent. 5. Otherwise unremarkable CT angiogram of the neck. ACT 112: Negative or not required by law. Electronically signed by: Josué Chino M.D. 03/23/2024 11:02 AM Head CTA 03/23/24 09:[address] OF THE BRAIN; CT ANGIOGRAM OF THE BRAIN; CT ANGIOGRAM OF THE NECK CLINICAL HISTORY: Seizure. COMPARISON STUDY: No priors. TECHNIQUE: Unenhanced axial CT scan of the brain is performed. Subsequently, following the IV administration of 120 of Optiray 320, CT angiogram of the head and neck was performed from the aortic arch to the vertex. Images are reviewed in the axial, sagittal, and coronal planes. 3-D MIPS images are created and assessed. IV contrast was administered without complication. All measurements were calculated based on NASCET criteria. A dose lowering technique was utilized adhering to the principles of ALARA. CT DOSE: 1280.24 mGy.cm FINDINGS: Brain parenchyma: Left MCA territory encephalomalacia is consistent with a remote infarct. There is ex vacuo dilatation of the left lateral ventricle and Wallerian degeneration within the left aspect of the anuj. There is no hemorrhage, mass effect, or evidence of acute territorial ischemia by CT criteria. There is no evidence of enhancing mass lesion on the angiogram phase images. The ventricles, sulci, and cisterns are normal in configuration. Carvajal- white matter differentiation is preserved. No extra-axial fluid collection is seen. Thoracic aorta: Visualized portions of the thoracic aorta are normal in caliber. The aortic arch demonstrates standard 3-vessel anatomy. Right carotid arterial system: The right common carotid artery is widely patent, as are the right internal and external carotid arteries. Left carotid arterial system: The left common carotid artery is widely patent, as is the left external carotid artery. The proximal left internal carotid artery is widely patent. There are stents within the mid to distal left internal carotid artery. The stents appear patent. Apparent diminished flow within the stent seen on image #355 is secondary to streak artifact. Vertebral arteries: The vertebral arteries are widely patent bilaterally noting left-sided dominance. Subclavian arteries: Widely patent bilaterally. Atherosclerotic plaque and irregularity seen on the left. Intracranial vasculature: The internal carotid arteries are patent at the skull base, as are the anterior and middle cerebral arteries bilaterally. The right A1 segment is atretic. The vertebrobasilar system and posterior cerebral arteries are widely patent. The left vertebral artery is dominant. There is origin of the right posterior cerebral artery. There is no aneurysm, high-grade stenosis, or focal vessel cut off seen throughout the intracranial circulation. Jugular veins: Patent bilaterally. Dural sinuses: Patent. Lung apices: Partially visualized upper lobe lung parenchyma appears clear. Soft tissues: The visualized pharyngeal soft tissues are normal in appearance noting angiographic phase technique. The oropharyngeal airway appears widely patent. The salivary and thyroid glands are normal in appearance. No cervical lymphadenopathy is seen. Postoperative changes seen in the left lower neck with a lead in place. Skeletal structures: The calvarium appears intact. The cervical spine is maintained noting multilevel spondylosis. Orbits: The bony orbits are intact. Orbital contents are normal as visualized. Sinuses and mastoids: There is trace mucosal thickening within the maxillary antra. The remaining 1paranasal sinuses are clear. The mastoid air cells are well pneumatized. IMPRESSION: 1. There is no hemorrhage, mass effect, or evidence of acute territorial ischemia by CT criteria. 2. Large remote left MCA territory infarct. 3. Unremarkable CT angiogram of the brain. 4. Stents are present within the mid to distal left internal carotid artery. These appear patent. 5. Otherwise unremarkable CT angiogram of the neck. ACT 112: Negative or not required by law. Electronically signed by: Josué Chino M.D. 03/23/2024 11:02 AM Neck CTA 03/23/24 09:[address] OF THE BRAIN; CT ANGIOGRAM OF THE BRAIN; CT ANGIOGRAM OF THE NECK CLINICAL HISTORY: Seizure. COMPARISON STUDY: No priors. TECHNIQUE: Unenhanced axial CT scan of the brain is performed. Subsequently, following the IV administration of 120 of Optiray 320, CT angiogram of the head and neck was performed from the aortic arch to the vertex. Images are reviewed in the axial, sagittal, and coronal planes. 3-D MIPS images are created and assessed. IV contrast was administered without complication. All measurements were calculated based on NASCET criteria. A dose lowering technique was utilized adhering to the principles of ALARA. CT DOSE: 1280.24 mGy.cm FINDINGS: Brain parenchyma: Left MCA territory encephalomalacia is consistent with a remote infarct. There is ex vacuo dilatation of the left lateral ventricle and Wallerian degeneration within the left aspect of the anuj. There is no hemorrhage, mass effect, or evidence of acute territorial ischemia by CT criteria. There is no evidence of enhancing mass lesion on the angiogram phase images. The ventricles, sulci, and cisterns are normal in configuration. Carvajal- white matter differentiation is preserved. No extra-axial fluid collection is seen. Thoracic aorta: Visualized portions of the thoracic aorta are normal in caliber. The aortic arch demonstrates standard 3-vessel anatomy. Right carotid arterial system: The right common carotid artery is widely patent, as are the right internal and external carotid arteries. Left carotid arterial system: The left common carotid artery is widely patent, as is the left external carotid artery. The proximal left internal carotid artery is widely patent. There are stents within the mid to distal left internal carotid artery. The stents appear patent. Apparent diminished flow within the stent seen on image #355 is secondary to streak artifact. Vertebral arteries: The vertebral arteries are widely patent bilaterally noting left-sided dominance. Subclavian arteries: Widely patent bilaterally. Atherosclerotic plaque and irregularity seen on the left. Intracranial vasculature: The internal carotid arteries are patent at the skull base, as are the anterior and middle cerebral arteries bilaterally. The right A1 segment is atretic. The vertebrobasilar system and posterior cerebral arteries are widely patent. The left vertebral artery is dominant. There is origin of the right posterior cerebral artery. There is no aneurysm, high-grade stenosis, or focal vessel cut off seen throughout the intracranial circulation. Jugular veins: Patent bilaterally. Dural sinuses: Patent. Lung apices: Partially visualized upper lobe lung parenchyma appears clear. Soft tissues: The visualized pharyngeal soft tissues are normal in appearance noting angiographic phase technique. The oropharyngeal airway appears widely patent. The salivary and thyroid glands are normal in appearance. No cervical lymphadenopathy is seen. Postoperative changes seen in the left lower neck with a lead in place. Skeletal structures: The calvarium appears intact. The cervical spine is maintained noting multilevel spondylosis. Orbits: The bony orbits are intact. Orbital contents are normal as visualized. Sinuses and mastoids: There is trace mucosal thickening within the maxillary antra. The remaining 1paranasal sinuses are clear. The mastoid air cells are well pneumatized. IMPRESSION: 1. There is no hemorrhage, mass effect, or evidence of acute territorial ischemia by CT criteria. 2. Large remote left MCA territory infarct. 3. Unremarkable CT angiogram of the brain. 4. Stents are present within the mid to distal left internal carotid artery. These appear patent. 5. Otherwise unremarkable CT angiogram of the neck. ACT 112: Negative or not required by law. Electronically signed by: Josué Chino M.D. 03/23/2024 11:02 AM Medications Administered Home Medications Medication Instructions Recorded Confirmed Last Taken amlodipine 5 mg tablet 5 mg PO DAILY 03/23/24 03/23/24 Unknown ezetimibe 10 mg tablet 10 mg PO HS 03/23/24 03/23/24 Unknown levetiracetam 750 mg tablet 750 mg PO BID 03/23/24 03/23/24 Unknown
[2024-03-23] MEDS ORDERED: ACETAMINOPHEN 325 MG TAB PO PRN (13:55)
[2024-03-23] MEDS ORDERED: ONDANSETRON INJ 2 MG/ML 2 ML VIAL IV PRN (13:55)
[2024-03-23] MEDS ORDERED: POLYETHYLENE (MIRALAX) 17 GM PACK PO PRN (13:55)
--- NOTE | 2024-03-23 13:56 | Neurology Consultation ---
Date of Consultation March 23, 2024 Assessment & Plan (1) Seizure: Per documentation review- it appears seizure likely provoked secondary to missed medication doses Agree with continued levetiracetam Recommend continue to provide seizure precautions Utilize benzodiazepines emergently for any breakthrough clinical seizure like activity Continue frequent neurological assessments Obtain stat CT brain without contrast for any acute neurological decline Continue to monitor/control blood pressure & blood glucose Continue to monitor renal and hepatic function, keep euvolemic Metabolic workup should include hgbA1c, fasting lipids, homocysteine, TSH, D Dimer, RPR, urinalysis Ok from neurology perspective for VTE prophylaxis Recommend therapy eval and treat Recommend SLT cognitive evaluation Telehealth Consultation Telehealth Information Telehealth Information: I performed this visit using a real-time telehealth connection between my location and the patients location ([facility]). After connecting through interactive tele-video, patient was identified by name and date of and/or wristband check.Patient (or authorized healthcare retail field representative) was informed that this was a telemedicine visit and it was being conducted confidentially over secure lines. My office door was closed and no one else was present in the room with me.Patient (or authorized healthcare retail field representative) provided consent to proceed with the visit, expressed an understanding of privacy and security of the telemedicine visit, and gave permission to have a hospital retail field representative in the room in order to assist with the visit and to conduct portions of the visit, as needed. I informed the patient (or authorized healthcare retail field representative) that I reviewed their record and presented the opportunity for them to ask any questions regarding the visit today. The patient agreed to participate. History of Present Illness Reason for Consultation: Seizure Requesting Physician: Dr. 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 per documentation review it appears he has been missing medications over the last few days as he was traveling and reportedly did not remember his medicine. Arrived via EMS who reported witnessed seizure en route to ER. Per EMS report, his friend Jonathan reported that patient began to have a back spasm followed by right leg shaking and gaze preference. Received load of IV levetiracetam. Further review of documented history reports frequent memory lapses and forgetfulness. 4 seizures reported since stroke in 2022 seemingly attributed to forgetting his medications. He has undergone emergent stroke imaging including CT brain without contrast, personally reviewed today, revealing no overt evidence of hemorrhage. There is noted chronic left MCA stroke/encephalomalacia. CT angiographic studies of head and neck, also personally reviewed today, reveal no overt evidence of large vessel occlusion or significant/flow limiting stenosis. I have performed televideo consultation. He is awake able to follow simple commands. States he has been taking his medication. Reported his leg started shaking and then he doesn't remember what happened. He is able to answer most questions appropriately. Denies pain. No apparent distress or discomfort. Allergies Allergy/AdvReac Type Severity Reaction Status Date / Time levofloxacin Allergy Unknown listed as Unverified 03/23/24 11:02 allergy on pharmacy record Home Medications Medication Instructions Recorded Confirmed Type amlodipine 5 mg tablet 5 mg PO DAILY 03/23/24 03/23/24 History ezetimibe 10 mg tablet 10 mg PO HS 03/23/24 03/23/24 History levetiracetam 750 mg tablet 750 mg PO BID 03/23/24 03/23/24 History Patient History Surgical History (Updated 03/23/24 @ 12:08 by Adri Rabago PA-C) Status post VNS (vagus nerve stimulator) placement Social History (Updated 03/23/24 @ 12:09 by Adri Rabago PA-C) Smoking Status: Never smoker Hx Alcohol Use: Yes Alcohol type: beer Alcohol Intake Frequency: 2-3 x/Week Feels Safe at Home: Yes Physical Exam Neurological Examination: Mental Status: Awake and alert. Oriented to person, place, and time. Fluency naming repetition and comprehension appear grossly intact. Affect remains appropriate. CN testing: I: Denies changes in ability to smell II:Reports no changes in visual acuity III/IV/: No evidence of gaze preference, hippus, nystagmus or roving eye movements V: Facial sensation reportedly grossly intact to light touch bilaterally VII: Facial movements appear without evidence of asymmetry VIII: Hearing appears grossly intact to loud voice bilaterally IX/X: Palate appears to elevate symmetrically XI: Shoulder shrug appears symmetric/ grossly intact bilaterally XII: Tongue protrudes midline without evidence of biting Motor exam: Strength appears grossly intact/symmetric in all extremities Sensory: Sensation is reportedly grossly intact throughout Coordination: Finger to nose and heel to collins were intact. No apparent evidence of dysmetria or dysdiadochokinesia Reflexes: Deferred Gait: Deferred Results & Data Vital Signs (Past 12 Hours) Vital Signs Temp Pulse Pulse Resp BP BP Pulse Ox 03/23/24 13:33 77 16 107/74 99 03/23/24 13:09 87 18 95 03/23/24 12:30 83 20 97 03/23/24 12:30 123/92 03/23/24 12:12 163/109 H 03/23/24 12:12 99 H 19 03/23/24 12:00 136/89 03/23/24 11:45 100 H 20 150/99 H 97 03/23/24 11:24 89 14 150/99 H 98 03/23/24 10:55 77 18 94 03/23/24 10:55 118/78 03/23/24 10:54 73 18 95 03/23/24 10:45 84 12 154/100 H 93 03/23/24 10:42 87 20 94 03/23/24 10:33 86 16 93 03/23/24 10:31 94 03/23/24 10:30 92 H 03/23/24 10:20 128/83 03/23/24 10:18 96 H 16 92 03/23/24 10:18 36.8 C 97 H 15 134/80 94 03/23/24 09:51 101 H 24 94 03/23/24 09:43 119 H 19 163/114 H 98 03/23/24 09:42 102 H 27 H 03/23/24 09:40 163/114 H O2 Del Method O2 Flow Rate 03/23/24 13:33 03/23/24 13:09 03/23/24 12:30 03/23/24 12:30 03/23/24 12:12 03/23/24 12:12 03/23/24 12:00 03/23/24 11:45 Room Air 03/23/24 11:24 Room Air 03/23/24 10:55 Room Air 03/23/24 10:55 03/23/24 10:54 Room Air 0 03/23/24 10:45 Room Air 03/23/24 10:42 03/23/24 10:33 03/23/24 10:31 Room Air 0 03/23/24 10:30 03/23/24 10:20 03/23/24 10:18 03/23/24 10:18 Room Air 03/23/24 09:51 03/23/24 09:43 03/23/24 09:42 03/23/24 09:40 Laboratory Results Abnormal lab results 03/23/24 03/23/24 03/23/24 Range/Units 09:51 09:52 10:26 Carbon Dioxide 19 L (21-32) mmol/L POC Total CO2 20 L (24-31) mmol/L Anion Gap 14 H (3-11) Glucose 158 H (70-99(Fasting)) mg/dl POC Glucose (other) 152 H (70-99) mg/dl Lactate 7.6 H* (0.4-2.0) mmol/L Total Bilirubin 1.5 H (0.2-1.0) mg/dl Urine Protein 3+ H (Negative) Urine Ketones Trace H (Negative) U Hyaline Cast (Auto) 6-10 H (0-2) /lpf Granular Casts Present A (None Prsent) /lpf Urine Mucus Present A (None Prsent) 03/23/24 Range/Units 11:23 Carbon Dioxide (21-32) mmol/L POC Total CO2 (24-31) mmol/L Anion Gap (3-11) Glucose (70-99(Fasting)) mg/dl POC Glucose (other) (70-99) mg/dl Lactate 2.1 H* (0.4-2.0) mmol/L Total Bilirubin (0.2-1.0) mg/dl Urine Protein (Negative) Urine Ketones (Negative) U Hyaline Cast (Auto) (0-2) /lpf Granular Casts (None Prsent) /lpf Urine Mucus (None Prsent) Diagnostic Findings Chest X-Ray 03/23/24 09:41 SINGLE VIEW CHEST CLINICAL HISTORY: Sepsis. FINDINGS: An AP, portable, upright chest radiograph is obtained. No prior studies are available for comparison at the time of dictation. An electronic device partially obscures the left lower chest. The lead extends into the left neck. The heart appears mildly enlarged. There is prominence of the pulmonary vasculature. Nonspecific interstitial thickening is likely chronic. No airspace consolidation or pleural effusion is identified. No pneumothorax is seen. The skeletal structures are osteopenic. The bony thorax is grossly intact. IMPRESSION: 1. Cardiomegaly with prominence of the pulmonary vasculature. Correlate clinically for evidence of fluid overload/congestive change. 2. No airspace consolidation or large pleural effusion is identified. ACT 112: Negative or not required by law. Electronically signed by: Josué Chino M.D. 03/23/2024 11:[address] 03/23/24 09:[address] OF THE BRAIN; CT ANGIOGRAM OF THE BRAIN; CT ANGIOGRAM OF THE NECK CLINICAL HISTORY: Seizure. COMPARISON STUDY: No priors. TECHNIQUE: Unenhanced axial CT scan of the brain is performed. Subsequently, following the IV administration of 120 of Optiray 320, CT angiogram of the head and neck was performed from the aortic arch to the vertex. Images are reviewed in the axial, sagittal, and coronal planes. 3-D MIPS images are created and assessed. IV contrast was administered without complication. All measurements were calculated based on NASCET criteria. A dose lowering technique was utilized adhering to the principles of ALARA. CT DOSE: 1280.24 mGy.cm FINDINGS: Brain parenchyma: Left MCA territory encephalomalacia is consistent with a re mote infarct. There is ex vacuo dilatation of the left lateral ventricle and Wallerian degeneration within the left aspect of the anuj. There is no hemorrhage, mass effect, or evidence of acute territorial ischemia by CT criteria. There is no evidence of enhancing mass lesion on the angiogram phase images. The ventricles, sulci, and cisterns are normal in configuration. Carvajal- white matter differentiation is preserved. No extra-axial fluid collection is seen. Thoracic aorta: Visualized portions of the thoracic aorta are normal in caliber. The aortic arch demonstrates standard 3-vessel anatomy. Right carotid arterial system: The right common carotid artery is widely patent, as are the right internal and external carotid arteries. Left carotid arterial system: The left common carotid artery is widely patent, as is the left external carotid artery. The proximal left internal carotid artery is widely patent. There are stents within the mid to distal left internal carotid artery. The stents appear patent. Apparent diminished flow within the stent seen on image #355 is secondary to streak artifact. Vertebral arteries: The vertebral arteries are widely patent bilaterally noting left-sided dominance. Subclavian arteries: Widely patent bilaterally. Atherosclerotic plaque and irregularity seen on the left. Intracranial vasculature: The internal carotid arteries are patent at the skull base, as are the anterior and middle cerebral arteries bilaterally. The right A1 segment is atretic. The vertebrobasilar system and posterior cerebral arteries are widely patent. The left vertebral artery is dominant. There is origin of the right posterior cerebral artery. There is no aneurysm, high-grade stenosis, or focal vessel cut off seen throughout the intracranial circulation. Jugular veins: Patent bilaterally. Dural sinuses: Patent. Lung apices: Partially visualized upper lobe lung parenchyma appears clear. Soft tissues: The visualized pharyngeal soft tissues are normal in appearance noting angiographic phase technique. The oropharyngeal airway appears widely patent. The salivary and thyroid glands are normal in appearance. No cervical lymphadenopathy is seen. Postoperative changes seen in the left lower neck with a lead in place. Skeletal structures: The calvarium appears intact. The cervical spine is maintained noting multilevel spondylosis. Orbits: The bony orbits are intact. Orbital contents are normal as visualized. Sinuses and mastoids: There is trace mucosal thickening within the maxillary antra. The remaining 1paranasal sinuses are clear. The mastoid air cells are well pneumatized. IMPRESSION: 1. There is no hemorrhage, mass effect, or evidence of acute territorial ischemia by CT criteria. 2. Large remote left MCA territory infarct. 3. Unremarkable CT angiogram of the brain. 4. Stents are present within the mid to distal left internal carotid artery. These appear patent. 5. Otherwise unremarkable CT angiogram of the neck. ACT 112: Negative or not required by law. Electronically signed by: Josué Chino M.D. 03/23/2024 11:02 AM Head CTA 03/23/24 09:[address] OF THE BRAIN; CT ANGIOGRAM OF THE BRAIN; CT ANGIOGRAM OF THE NECK CLINICAL HISTORY: Seizure. COMPARISON STUDY: No priors. TECHNIQUE: Unenhanced axial CT scan of the brain is performed. Subsequently, fo llowing the IV administration of 120 of Optiray 320, CT angiogram of the head and neck was performed from the aortic arch to the vertex. Images are reviewed in the axial, sagittal, and coronal planes. 3-D MIPS images are created and assessed. IV contrast was administered without complication. All measurements were calculated based on NASCET criteria. A dose lowering technique was utilized adhering to the principles of ALARA. CT DOSE: 1280.24 mGy.cm FINDINGS: Brain parenchyma: Left MCA territory encephalomalacia is consistent with a remote infarct. There is ex vacuo dilatation of the left lateral ventricle and Wallerian degeneration within the left aspect of the anuj. There is no hemorrhage, mass effect, or evidence of acute territorial ischemia by CT criteria. There is no evidence of enhancing mass lesion on the angiogram phase images. The ventricles, sulci, and cisterns are normal in configuration. Carvajal- white matter differentiation is preserved. No extra-axial fluid collection is seen. Thoracic aorta: Visualized portions of the thoracic aorta are normal in caliber. The aortic arch demonstrates standard 3-vessel anatomy. Right carotid arterial system: The right common carotid artery is widely patent, as are the right internal and external carotid arteries. Left carotid arterial system: The left common carotid artery is widely patent, as is the left external carotid artery. The proximal left internal carotid artery is widely patent. There are stents within the mid to distal left internal carotid artery. The stents appear patent. Apparent diminished flow within the stent seen on image #355 is secondary to streak artifact. Vertebral arteries: The vertebral arteries are widely patent bilaterally noting left-sided dominance. Subclavian arteries: Widely patent bilaterally. Atherosclerotic plaque and irregularity seen on the left. Intracranial vasculature: The internal carotid arteries are patent at the skull base, as are the anterior and middle cerebral arteries bilaterally. The right A1 segment is atretic. The vertebrobasilar system and posterior cerebral arteries are widely patent. The left vertebral artery is dominant. There is origin of the right posterior cerebral artery. There is no aneurysm, high-grade stenosis, or focal vessel cut off seen throughout the intracranial circulation. Jugular veins: Patent bilaterally. Dural sinuses: Patent. Lung apices: Partially visualized upper lobe lung parenchyma appears clear. Soft tissues: The visualized pharyngeal soft tissues are normal in appearance noting angiographic phase technique. The oropharyngeal airway appears widely patent. The salivary and thyroid glands are normal in appearance. No cervical lymphadenopathy is seen. Postoperative changes seen in the left lower neck with a lead in place. Skeletal structures: The calvarium appears intact. The cervical spine is maintained noting multilevel spondylosis. Orbits: The bony orbits are intact. Orbital contents are normal as visualized. Sinuses and mastoids: There is trace mucosal thickening within the maxillary antra. The remaining 1paranasal sinuses are clear. The mastoid air cells are well pneumatized. IMPRESSION: 1. There is no hemorrhage, mass effect, or evidence of acute territorial ischemia by CT criteria. 2. Large remote left MCA territory infarct. 3. Unremarkable CT angiogram of the brain. 4. Stents are present within the mid to distal left internal carotid artery. These appear patent. 5. Otherwise unremarkable CT angiogram of the neck. ACT 112: Negative or not required by law. Electronically signed by: Josué Chino M.D. 03/23/2024 11:02 AM Neck CTA 03/23/24 09:[address] OF THE BRAIN; CT ANGIOGRAM OF THE BRAIN; CT ANGIOGRAM OF THE NECK CLINICAL HISTORY: Seizure. COMPARISON STUDY: No priors. TECHNIQUE: Unenhanced axial CT scan of the brain is performed. Subsequently, following the IV administration of 120 of Optiray 320, CT angiogram of the head and neck was performed from the aortic arch to the vertex. Images are reviewed in the axial, sagittal, and coronal planes. 3-D MIPS images are created and assessed. IV contrast was administered without complication. All measurements were calculated based on NASCET criteria. A dose lowering technique was utilized adhering to the principles of ALARA. CT DOSE: 1280.24 mGy.cm FINDINGS: Brain parenchyma: Left MCA territory encephalomalacia is consistent with a remote infarct. There is ex vacuo dilatation of the left lateral ventricle and Wallerian degeneration within the left aspect of the anuj. There is no hemorrhage, mass effect, or evidence of acute territorial ischemia by CT criteria. There is no evidence of enhancing mass lesion on the angiogram phase images. The ventricles, sulci, and cisterns are normal in configuration. Carvajal- white matter differentiation is preserved. No extra-axial fluid collection is seen. Thoracic aorta: Visualized portions of the thoracic aorta are normal in caliber. The aortic arch demonstrates standard 3-vessel anatomy. Right carotid arterial system: The right common carotid artery is widely patent, as are the right internal and external carotid arteries. Left carotid arterial system: The left common carotid artery is widely patent, as is the left external carotid artery. The proximal left internal carotid artery is widely patent. There are stents within the mid to distal left internal carotid artery. The stents appear patent. Apparent diminished flow within the stent seen on image #355 is secondary to streak artifact. Vertebral arteries: The vertebral arteries are widely patent bilaterally noting left-sided dominance. Subclavian arteries: Widely patent bilaterally. Atherosclerotic plaque and irregularity seen on the left. Intracranial vasculature: The internal carotid arteries are patent at the skull base, as are the anterior and middle cerebral arteries bilaterally. The right A1 segment is atretic. The vertebrobasilar system and posterior cerebral arteries are widely patent. The left vertebral artery is dominant. There is origin of the right posterior cerebral artery. There is no aneurysm, high-grade stenosis, or focal vessel cut off seen throughout the intracranial circulation. Jugular veins: Patent bilaterally. Dural sinuses: Patent. Lung apices: Partially visualized upper lobe lung parenchyma appears clear. Soft tissues: The visualized pharyngeal soft tissues are normal in appearance noting angiographic phase technique. The oropharyngeal airway appears widely patent. The salivary and thyroid glands are normal in appearance. No cervical lymphadenopathy is seen. Postoperative changes seen in the left lower neck with a lead in place. Skeletal structures: The calvarium appears intact. The cervical spine is maintained noting multilevel spondylosis. Orbits: The bony orbits are intact. Orbital contents are normal as visualized. Sinuses and mastoids: There is trace mucosal thickening within the maxillary antra. The remaining 1paranasal sinuses are clear. The mastoid air cells are well pneumatized. IMPRESSION: 1. There is no hemorrhage, mass effect, or evidence of acute territorial ischemia by CT criteria. 2. Large remote left MCA territory infarct. 3. Unremarkable CT angiogram of the brain. 4. Stents are present within the mid to distal left internal carotid artery. These appear patent. 5. Otherwise unremarkable CT angiogram of the neck. ACT 112: Negative or not required by law. Electronically signed by: Josué Chino M.D. 03/23/2024 11:02 AM Medications Administered Home Medications Medication Instructions Recorded Confirmed Last Taken amlodipine 5 mg tablet 5 mg PO DAILY 03/23/24 03/23/24 Unknown ezetimibe 10 mg tablet 10 mg PO HS 03/23/24 03/23/24 Unknown levetiracetam 750 mg tablet 750 mg PO BID 03/23/24 03/23/24 Unknown
[2024-03-23] MEDS: EZETIMIBE 10 MG TAB PO SCH (20:24)
[2024-03-23] MEDS: levETIRAcetam 250 MG TAB PO SCH (20:24)
--- NOTE | 2024-03-24 07:15 | Electrocardiogram Report ---
Test Reason : Blood Pressure : / mmHG Vent. Rate : 096 BPM Atrial Rate : 096 BPM P-R Int : 166 ms QRS Dur : 082 ms QT Int : 352 ms P-R-T Axes : 063 003 053 degrees QTc Int : 444 ms Normal sinus rhythm Possible Left atrial enlargement No previous ECGs available Confirmed by Andry Christopher ([id number]) on 03/24/2024 7:14:59 AM Referred By: REFERRED SELF Confirmed By:Harlan Christopher
[2024-03-24] MEDS: amLODIPine BESYLATE 5 MG TAB PO SCH (08:51)
[2024-03-24] MEDS: ENOXAPARIN INJ 40 MG/0.4 ML SYR SQ SCH (08:51)
[2024-03-24 09:49] LABS: Hematocrit (blood only) 46.7 % (42.0-52.0); Hemoglobin 15.5 g/dl (14.0-18.0); Mean Corpuscular Hemoglobin 28.1 pg (25.0-34.0); Mean Corpuscular Hgb Conc 33.2 g/dL (32.0-36.0); Mean Corpuscular Volume 84.8 fL (80.0-100.0); Mean Platelet Volume 10.9 fL (9.4-12.4); Platelet Count 217 K/uL (130-400); RDW Coefficient of Variation 12.8 % (11.5-14.5); RDW Standard Deviation 39.7 fL (36.4-46.3); Red Blood Count 5.51 M/uL (4.70-6.10); White Blood Count 5.76 K/ul (4.8-10.8)
[2024-03-24 09:56] LABS: BUN Creatinine Ratio 10.6 (10-20); Calcium 9.3 mg/dl (8.6-10.3); Creatinine Clr Calc Pharmacy 91.7 ml/min; Est GFR (African American) 101.7 ml/min; Est GFR (Non-African American) 87.8 ml/min; Potassium 3.8 mmol/L (3.5-5.1)
--- NOTE | 2024-03-24 10:54 | Discharge Summary ---
Date of Service March 24, 2024 Admission HPI Per Admitting Provider Mr. 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 Patient was confused on examination, able to answer limited questions and intermittently follow commands. Patient is in town for an old Fraternity Brother meet up and left his keppra at home and has not taken keppra for up to 2 days. Since his stroke in 2022, he has experienced 4 seizures, mostly 2/2 missed medications. Majority of history was gathered from daughter, Lexi ([phone]). She reports patient is forgetful since his stroke and the prior seizures are due to lapses in forgetting his medication. Daughter reports patient doesn't smoke. She states he drinks 1-3 times a week, 1-2 beers in a sitting. Patient does not use an assistive device but does drag his right leg. He has a vagal stimulator placed s/p stroke. Seizure was witnessed, reported as generalized "shaking" lasting roughly 10- 15minutes. Patient reportedly had additional seizure in EMS for which he received ativan 2mg IV. Patient states he isn't in any pain. He endorses forgetting his home medications . He denies headache, chest pain or other acute issues. patient is currently from who is listed in chart. Friend, Jonathan, was at bedside. In the ED, vitals were notable for BP of 150s, HR of 80s-100s, and O2 sat of high 90s Imaging revealed left MCA encephalomalacia with stents in mid/distal left ICA EKG NSR QTc 444 ED interventions: keppra load Consultants: neuro Patient to be admitted to pcu/tele. for further evaluation and management of seizure. Admission Exam Per Admitting Provider GENERAL APPEARANCE: AxOx1 confused appearing, no acute distress. HEENT: NC, AT. MMM. EOMI, clear conjunctiva, oropharynx clear.right facial droop NECK: Supple without lymphadenopathy. No stiffness or restricted ROM. HEART: Normal rate and regular rhythm, normal S1/S1, no m/r/g; left sided vagal stim with healed incision noted LUNGS: CTAB, moving air well. No crackles or wheezes are heard. ABDOMEN: Soft, nontender, nondistended with good bowel sounds heard. BACK: No CVAT, no obvious deformity. EXTREMITIES: Without cyanosis, clubbing or edema. right arm in splint with some slight contracture of digits NEUROLOGICAL: right hemiparesis, unable to lift right arm or right leg, right facial droop, dysarthria, no shaking noted, makes appropriate eye contact, able to follow minimal commands, still seemingly confused s/p seizure Skin: Warm and dry without any rash. Principal Diagnosis Seizure due to missed medication Discharge Exam Constitutional + well hydrated; no acute distress Eyes PERRL, conjunctivae normal, anicteric sclerae ENMT external ear and nose normal, oropharynx normal Respiratory normal respiratory effort, lungs clear to auscultation Cardiovascular Rate/Rhythm: regular rate and regular rhythm Gastrointestinal (Abdomen) normal bowel sounds, soft, nontender, no hepatosplenomegaly Musculoskeletal No pedal edema Neurologic PERRL, EOMI, dysarthria (old) Right hemiparesis Psychiatric A+Ox3, euthymic affect Discharge Data Allergies Allergy/AdvReac Type Severity Reaction Status Date / Time levofloxacin Allergy Unknown listed as Unverified 03/23/24 11:02 allergy on pharmacy record Consultations 03/23/24 11:09 ED Decision to Admit Stat 03/23/24 14:00 Consult Neurology Routine Ordered Studies 03/23/24 09:42 CT angio head w con Stat CT angio neck with con Stat CT head/brain wo con Stat Hospital Course (1) Seizure: (2) History of stroke: (3) Right hemiplegia: Plan Mr. 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 Patient was confused on examination, able to answer limited questions and intermittently follow commands. History of multiple seizures s/p stroke given missed medications per daughter. #Seizure due to missed medication #Acute encephalopathy s/p seizure #Large left MCA stroke c/b hemiparesis, dysarthria, seizures -Stroke 12/13/2022, s/p 2 stents in left ICA Previously on gabapentin, but now on keppra 750 BID missed medications for 1-2 days He is from out of town and reported he forgot his seizure med while traveling here He was loaded with keppra in ED Home keppra dose resumed Passed bedside dysphagia screen Called daughter on the phone while evaluating patient. We discussed ways/resources to aid him take his meds including Med/pill reminder applications They acknowledged he has keppra at home Patient's friend currently in room to drive him back to [place] from the hospital Continue zetia/asa daily #HTN continue home amlodipine #HLD statin intolerant, continue home zetia #BPH no longer on terazosin Total Time Total Time Spent Total Time Spent (In Minutes): 40 Total Time Includes: Examination of the Patient, Discharge Planning, Medication Reconciliation and Other Discharge Plan Discharge Items Patient Disposition: Home - Self-Care Reason For Visit: SEIZURE Discharge Diagnosis: Seizure due to missed medication Activity: Resume your previous activity Non-emergency contact: Primary Care Provider and Neurologist Call non-emergency contact if: you have any medication questions and your symptoms worsen Follow-up/Referrals: PCP,NO [Primary Care Provider] - Diet: Heart Healthy Addtl Attending Provider Instructions: Mr Wiggins You came to the hospital after a seizure episode due to missing doses of your seizure medication. Please ensure following measures we discussed to help avoid missing doses. Please continue to take your medications and follow up with your Primary Doctor and Neurologist. It was a pleasure taking care of you. Pending Studies at Discharge: No Stand-Alone Forms: My [facility], Smoking Cessation Medications and DC Order Prescriptions: Continued amlodipine 5 mg tablet 5 mg PO DAILY Rx Instructions: all medications were last picked up in december, per the pharmacy 03/23/24 levetiracetam 750 mg tablet 750 mg PO BID ezetimibe 10 mg tablet 10 mg PO HS Discharge Orders: Discharge Order (Routine); Ordered 03/24/24 Ordered By: Mandi Campbell Admission Data Admit Date/Time: 03/23/24 12:02 Attending Provider: Mandi Campbell I. Admit Provider: Arlene Oreilly Primary Care Provider: PCP,NO Other Providers: Jerod Christian; Arlene Oreilly Other Interventions: Discharge Summary Assessment (RN) Last Done: 03/24/24 11:33
== END 2024-03-24 11:35 | disposition home or self-care (01) | DRG 101 ==
LOC: ED 09:36 → EDINP 12:02 → SUATTDRO 12:02 → INTOOBSV 12:02 → 2S 13:55